=== PATIENT | female | born 1965 | race Caucasian/White ===

== ENCOUNTER 2023-11-18 12:51 | Emergency (ER) | payer BC ==
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
[2023-11-18] MEDS ORDERED: Imitrex 6 MG/0.5 ML SQ ONE (13:25)
[2023-11-18] MEDS: Imitrex 6 MG/0.5 ML SQ STA (13:29)
[2023-11-18 13:34] VITALS: BP 127/67; PULSE 77; RESP 20; TEMP 98.8; O2SAT 97
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
== END 2023-11-18 15:03 | disposition home or self-care (01) ==
LOC: ED 12:51
DX: Z04.1 Encounter for examination and observation following transport accident (principal); R07.9 Chest pain, unspecified; M79.604 Pain in right leg; G43.909 Migraine, unspecified, not intractable, without status migrainosus
CPT/HCPCS: 36000; 70450; 71250; 96372; 99285; J3030